=== PATIENT | female | born 1955 | race Two or more races ===

== ENCOUNTER 2024-09-01 18:18 | Inpatient (IN) | payer MEDICARE, BC ==
[2024-09-01] MEDS ORDERED: ACETAMINOPHEN TAB 325 MG TAB PO PRN (18:39)
[2024-09-01] MEDS ORDERED: NALOXONE 0.4 MG/ML 1 ML VIAL IV PRN (18:39)
--- NOTE | 2024-09-01 18:43 | ED ---
General Adult HPI - General Chief complaint: Chest Pain Stated complaint: chest pain Time Seen by Provider: 09/01/24 18:23 Source: patient, EMS, RN notes reviewed, old records reviewed Mode of arrival: EMS Limitations: no limitations - History of Present Illness Initial comments: 69-year-old female with known CAD presenting for evaluation of intermittent chest tightness. Patient was transferred from outside hospital for cardiology evaluation of exertional chest pain. Patient states she previously followed with cardiology but has been many years. She states she does have a history of cardiac stent. Patient has no pain at the time my evaluation. She was given aspirin and nitroglycerin at outside hospital prior to transfer. She had a negative initial troponin. But given the exertional chest pain and history of CAD she was transferred for cardiology evaluation. Review of Systems ROS Statement: Those systems with pertinent positive or pertinent negative responses have been documented in the HPI. ROS Other: All systems not noted in ROS Statement are negative. Past Medical History Past Medical History: Coronary Artery Disease (CAD), Hypertension, Myocardial Infarction (ID) Additional Past Medical History / Comment(s): [place] w/ stent placement (2004/2014) History of Any Multi-Drug Resistant Organisms: None Reported Past Surgical History: Adenoidectomy, Appendectomy, Hernia Repair, Hysterectomy, Orthopedic Surgery, Tonsillectomy Additional Past Surgical History / Comment(s): Right shoulder x4 Past Psychological History: No Psychological Hx Reported Smoking Status: Current every day smoker Past Alcohol Use History: Occasional Past Drug Use History: None Reported General Exam Limitations: no limitations General appearance: alert, in no apparent distress Head exam: Present: atraumatic, normocephalic Eye exam: Present: normal appearance, PERRL ENT exam: Present: normal exam Neck exam: Present: normal inspection. Absent: tenderness, meningismus Respiratory exam: Present: normal lung sounds bilaterally. Absent: respiratory distress, wheezes Cardiovascular Exam: Present: normal rhythm, bradycardia GI/Abdominal exam: Present: soft. Absent: distended, tenderness, guarding Extremities exam: Present: normal inspection, normal capillary refill. Absent: calf tenderness Neurological exam: Present: alert, oriented X3, CN II-XII intact. Absent: motor sensory deficit Psychiatric exam: Present: normal affect, normal mood Skin exam: Present: warm, dry, intact. Absent: cyanosis, diaphoretic Course Vital Signs 09/01/24 18:25 Temperature 98.3 F Pulse Rate 54 L Respiratory 18 Rate Blood Pressure 143/76 O2 Sat by Pulse 96 Oximetry Medical Decision Making - Medical Decision Making Was pt. sent in by a medical professional or institution (THIERNO Haji, [facility], urgent care, hospital, or long-term...) When possible be specific @Transfer from [place] Did you speak to anyone other than the patient for history (EMS, parent, family, police, friend...)? What history was obtained from this source @ -No Did you review nursing and triage notes (agree or disagree)? Why? @ -I reviewed and agree with nursing and triage notes Were old charts reviewed (outside hosp., previous admission, EMS record, old EKG, old radiological studies, urgent care reports/EKG's, long-term records)? Report findings @ -No old charts were reviewed Differential Chest Pain: Stable Angina, Unstable Angina, STEMI, NSTEMI Aortic Dissection, Pneumothorax, Musculoskeletal, Esophageal Spasm GERD, Cholecystitis, Pancreatitis, Zoster, this is not meant to be an all-inclusive list. EKG interpreted by me (3pts min.). @ -EKG: Sinus bradycardia with a first-degree AV block rate of 51, VA interval 212, QRS duration 98, QTc [address] segment elevation. X-rays interpreted by me (1pt min.). @ -None done CT interpreted by me (1pt min.). @ -None done U/S interpreted by me (1pt. min.). @ -None done What testing was considered but not performed or refused? (CT, X-rays, U/S, labs)? Why? @ -None What meds were considered but not given or refused? Why? @ -None Did you discuss the management of the patient with other professionals (professionals i.e. THIERNO Haji, [facility], lab, RT, psych nurse, social media coordinator, sat tutor, teacher, sports development officer, director case management)? Give summary @ -Dr. Ramirez Was smoking cessation discussed for >3mins.? @ -No Was critical care preformed (if so, how long)? @ -No Were there social determinants of health that impacted care today? How? (Homelessness, low income, unemployed, alcoholism, drug addiction, transportation, low edu. Level, literacy, decrease access to med. care, prison, rehab)? @ -No Was there de-escalation of care discussed even if they declined (Discuss DNR or withdrawal of care, Hospice)? DNR status @ -No What co-morbidities impacted this encounter? (DM, HTN, Smoking, COPD, CAD, Cancer, CVA, ARF, Chemo, Hep., AIDS, mental health diagnosis, sleep apnea, morbid obesity)? @ -Current smoker, history of CAD Was patient admitted / discharged? Hospital course, mention meds given and route, prescriptions, significant lab abnormalities, going to OR and other pertinent info. @69-year-old female with exertional chest pain transferred for cardiology evaluation. Patient chest pain-free with a negative initial troponin. She will be admitted for serial cardiac enzymes, telemetry, cardiology consultation. I did obtain repeat laboratory test including CBC, CMP which are pending at this time. Undiagnosed new problem with uncertain prognosis? @ -No Drug Therapy requiring intensive monitoring for toxicity (Heparin, Nitro, Insulin, Cardizem)? @ -No Were any procedures done? @ -No Diagnosis/symptom? @ -Chest pain rule out Acute, or Chronic, or Acute on Chronic? @ -Acute Uncomplicated (without systemic symptoms) or Complicated (systemic symptoms)? @ -Default Side effects of treatment? @ -No Exacerbation, Progression, or Severe Exacerbation? @ -No Poses a threat to life or bodily function? How? (Chest pain, [place], ID, pneumonia, PE, COPD, DKA, ARF, appy, cholecystitis, CVA, Diverticulitis, Homicidal, Suicidal, threat to staff... and all critical care pts) @Yes, ACS Disposition Clinical Impression: Chest pain Disposition: ADMITTED IP TO THIS HOSP Condition: Stable Is patient prescribed a controlled substance at d/c from ED?: No Referrals: None,Stated [Primary Care Provider] - 1-2 days Time of Disposition: 18:43
[2024-09-01 19:05] LABS: Basophils # (A) 0.04 10*3/uL (0.00-0.10); Basophils % (A) 0.6 %; Eosinophils % (A) 1.5 %; HCT 36.7 % (37.2-46.3); Lymphocytes # (A) 3.36 10*3/uL (0.90-5.00); Lymphocytes % (A) 49.6 %; MCH 34.5 pg (27.0-32.0); MCHC 35.4 g/dL (32.0-37.0); MCV 97.3 fL (80.0-97.0); Monocytes # (A) 0.51 10*3/uL (0.20-1.00); Monocytes % (A) 7.5 %; Neutrophils # (A) 2.74 10*3/uL (1.80-7.70); Neutrophils % (A) 40.4 %; Platelet Count 240 10*3/uL (140-440); RBC 3.77 10*6/uL (4.10-5.20); RDW 12.6 % (11.5-14.5); WBC 6.78 10*3/uL (4.50-10.00)
[2024-09-01 19:14] LABS: Partial Thromboplastin Time 24.4 sec (22.0-30.0); Prothrombin Time 11.3 sec (10.0-12.5)
[2024-09-01 19:19] LABS: ALT 20 U/L (4-34); AST 27 U/L (14-36); African American GFR (CKD) 81 (>60 ml/min/1.73 sqM); Albumin 4.1 g/dL (3.5-5.0); Alkaline Phosphatase 82 U/L (38-126); Anion Gap 9 mmol/L; Blood Urea Nitrogen 20 mg/dL (7-17); Calcium 9.9 mg/dL (8.4-10.2); Carbon Dioxide 25 mmol/L (22-30); Chloride 103 mmol/L (98-107); Glucose 91 mg/dL (74-99); Non-African American GFR(CKD) 70 (>60 ml/min/1.73 sqM); Potassium 3.8 mmol/L (3.5-5.1); Sodium 137 mmol/L (137-145); Total Bilirubin 0.6 mg/dL (0.2-1.3); Total Protein 6.5 g/dL (6.3-8.2)
--- NOTE | 2024-09-01 20:26 | HP ---
HISTORY AND PHYSICAL CHIEF COMPLAINT: Chest pain. HISTORY OF PRESENT ILLNESS: This 69-year-old woman with a past medical history of CAD, apparently had a stress test in recently which was negative according to her. The patient is complaining of pressure type of recent chest pain in the central part and left-sided chest, radiating to the left shoulder. The patient was referred to [facility], admitted for evaluation and treatment. There is no history of any fever, rigors, or chills at this time. The patient just arrived to the ER at this time. PAST MEDICAL HISTORY: History of CAD, hypertension, history of myocardial infarction, history of CAD stent. Rest of history and chart is also reviewed. HOME MEDICATIONS: ntd ALLERGIES: Not available. FAMILY HISTORY: No history of heart disease or strokes in the family. SOCIAL HISTORY: History of smoking. REVIEW OF SYSTEMS: A 14-point review of systems negative except as mentioned earlier. PHYSICAL EXAMINATION: VITAL SIGNS: Pulse is 54, blood pressure 140/76, and respirations 18. HEENT: Conjunctivae normal. CARDIOVASCULAR: S1, S2. ABDOMEN: Soft, nontender. LEGS: No edema. No swelling. NERVOUS SYSTEM: No focal deficits. LABORATORY DATA: Hemoglobin 13. EKG nonspecific ST T changes ASSESSMENT: 1. Chest pain, possible unstable angina, rule out acute myocardial infarction. 2. History of CAD stent. 3. History of myocardial infarction. 4. History of CAD noted. 5. Continued ongoing nicotine dependence. RECOMMENDATIONS: This 69-year-old woman presented with multiple complex medical issues. We will monitor the patient closely. Continue the current management and continue symptomatic treatment. I would recommend considering a protocol, IV heparin, Cardiology consultation, rule out myocardial infarction. Otherwise, pain management. Repeat troponins. Prognosis guarded because of multiple complex medical issues. Further recommendations to follow. See orders for details. MMODL / IJN: [id number] / MTDD
[2024-09-01] MEDS ORDERED: ATORVASTATIN 10 MG TAB PO SCH (23:00)
[2024-09-01] MEDS: NICOTINE 21MG/24HR PATCH TRANSDERM SCH (23:12)
[2024-09-01] MEDS: ATORVASTATIN 20 MG TAB PO SCH (23:12)
[2024-09-02] MEDS ORDERED: ALPRAZolam 0.5 MG TAB PO PRN (09:44)
[2024-09-02] MEDS ORDERED: ALPRAZolam 0.25 MG TAB PO PRN (09:44)
[2024-09-02] MEDS ORDERED: NITROGLYCERIN SL TABS 0.4 MG TAB SUBLINGUAL PRN (09:44)
[2024-09-02] MEDS: ATORVASTATIN 80 MG TAB PO STA (10:16)
[2024-09-02] MEDS: ASPIRIN 325 MG TAB PO STA (10:16)
[2024-09-02] MEDS: HEPARIN SODIUM,PORCINE (1 ML) 2,500 UNIT in SODIUM CHLORIDE 0.9% 250 ML IRRIGATION ONE (11:59)
[2024-09-02] MEDS: HEPARIN SODIUM (1,000 UNIT/ML) 1,000 UNIT in SODIUM CHLORIDE 0.9% 1,000 ML IRRIGATION ONE (11:59)
[2024-09-02] MEDS: SODIUM CHLORIDE 0.9% 1,000 ML IV ONE (11:59)
[2024-09-02] MEDS: fentaNYL (PF) 50 MCG/ML 2 ML AMP IVP ONE (12:40)
[2024-09-02] MEDS: LIDOCAINE 1% INJ 10MG/ML (20 ML MDV) SQ ONE (12:43)
[2024-09-02] MEDS: VERAPAMIL SYRINGE (5 MG/10 ML) INTRAARTER ONE (12:44)
[2024-09-02] MEDS: MIDAZOLAM 2 MG/2 ML VIAL IVP ONE (12:48)
[2024-09-02] MEDS: HEPARIN SODIUM 1,000 UN/ML (10ML VL) IVP ONE (12:49)
[2024-09-02] MEDS: IOPAMIDOL-370 100ML BTL INJ ONE (12:55)
[2024-09-02] MEDS ORDERED: RX INFO: IV CONTRAST WAS GIVEN 1 EACH MISC MISCELLANE PRN (13:20)
--- NOTE | 2024-09-02 13:29 | P.CRDCN ---
History of Present Illness Consult date: 09/02/24 History of present illness: History of Present Illness: The patient is a 69-year-old female with known history of hypertension, hyperlipidemia, chronic tobacco use, peripheral vascular disease with a prior history of CAD who presented with symptoms of chest discomfort. She has been complaining of discomfort on and off for the last couple weeks, exertional pattern with progressive fatigue, lack of energy and shortness of breath. She has no PND or orthopnea and no documented arrhythmia. She has a prior history of CAD status post stenting of the RCA in 2005 and subsequently in 2015 at [facility]. Repeat cardiac catheterization in 2019 showed patent stents with significant obstructive disease in a small first OM. She was treated medically. She has not seen a lab director in a while. She has a prior history of ASD closure and a history of PAD with prior intervention. She recently underwent an MPI that showed a fixed anterior wall defect probably soft tissue attenuation and her echocardiogram showed a preserved systolic function. Because of her persistent symptoms she was referred to the hospital and subsequently admitted. She used to smoke up to a pack a day until yesterday. On presentation she was in sinus mechanism and her troponin were normal. She has noted weight loss recently with poor appetite. She has allergy to nickel Medications: Aspirin, metoprolol 25 mg daily, clopidogrel 75 mg daily, Zestril 10 mg daily, metoprolol tartrate 25 mg daily, lisinopril HCT 20-25 mg daily Review of Systems: Respiratory: She has dyspnea on exertion and occasional cough. GI: No nausea or vomiting . No history of peptic ulcer disease. No recent GI bleed. : No hematuria or dysuria. Nervous System: No stroke or seizure. Physical Examination: 69-year-old female, alert oriented no apparent distress,Blood pressure 137/60, Heart rate 55 Head: Normocephalic. Eyes: Sclerae nonicteric. Neck: Good carotid upstroke, no bruit, no jugular venous distention. Lungs: Decreased breath sounds bilaterally Heart: Regular rate and rhythm, S1-S2, no S3, no rub. Systolic ejection murmur. Abdomen: Soft nontender, positive bowel sounds no organomegaly. Extremities: No edema, intact distal pulses. Labs: Hemoglobin 13, WBC 6.78. BUN 20, creatinine 0.85. Troponin less than 0.012. EKG: Sinus mechanism rate of 51 with left axis deviation, first-degree block and nonspecific ST-T wave changes Impression: 1. Recurrent chest discomfort, exertional pattern, rule out unstable angina. Patient had a recent MPI that was unremarkable. Rule out false negative 2. Status post stenting of the RCA 3. History of chronic tobacco use 4. Status post ASD closure 5. History of hypertension 6. History of hyperlipidemia 7. Weight loss, patient would require workup as an outpatient by PCP Plan: 1. I would recommend to proceed with coronary angiography in view of the persistent symptoms and prior history 2. Smoking cessation 3. Continue other therapy, if there is no evidence of significant disease stop clopidogrel 4. Depending on her progress further recommendations will be made 5. Thank you for this consult we will follow with you Past Medical History Past Medical History: Coronary Artery Disease (CAD), Hypertension, Myocardial Infarction ([place]) Additional Past Medical History / Comment(s): [place] w/ stent placement () Last Myocardial Infarction Date:: unknwon History of Any Multi-Drug Resistant Organisms: None Reported Past Surgical History: Adenoidectomy, Appendectomy, Hernia Repair, Hysterectomy, Orthopedic Surgery, Tonsillectomy Additional Past Surgical History / Comment(s): Right shoulder x4 Past Psychological History: No Psychological Hx Reported Smoking Status: Current every day smoker Past Alcohol Use History: Occasional Past Drug Use History: None Reported Medications and Allergies Home Medications Medication Instructions Recorded Confirmed Type Aspirin EC [Ecotrin Low Dose] 81 mg PO DAILY 09/02/24 09/02/24 History Atorvastatin [Lipitor] 20 mg PO HS 09/02/24 09/02/24 History Clopidogrel [Plavix] 75 mg PO DAILY 09/02/24 09/02/24 History Lisinopril-Hctz 20-25 mg 1 tab PO DAILY 09/02/24 09/02/24 History [Zestoretic 20-25] Metoprolol Tartrate 25 mg PO DAILY 09/02/24 09/02/24 History Nitroglycerin Sl Tabs [Nitrostat] 0.4 mg SUBLINGUAL Q5M PRN 09/02/24 09/02/24 History lisinopriL [Zestril] 10 mg PO DAILY 09/02/24 09/02/24 History Allergies Allergy/AdvReac Type Severity Reaction Status Date / Time No Known Allergies Allergy Verified 09/02/24 10:17 Physical Exam Vitals: Vital Signs Temp Pulse Pulse Resp BP BP Pulse Ox 09/02/24 07:11 98.2 F 54 L 16 137/67 98 09/02/24 00:51 97.8 F 55 L 18 126/56 98 09/01/24 21:16 98.1 F 52 L 16 139/61 95 09/01/24 20:16 57 L 18 118/65 95 09/01/24 18:57 54 L 09/01/24 18:25 98.3 F 54 L 18 143/76 96 Intake and Output 09/01/24 09/02/24 09/02/24 22:59 06:59 14:59 Intake Total 100 Balance 100 Intake: IV 100 Other: Voiding Method Toilet Toilet # Voids 1 2 Weight 55.792 kg Results 09/01/24 18:46 09/01/24 18:46 Cardiac Enzymes 09/01/24 09/01/24 09/01/24 Range/Units 18:46 18:46 23:31 AST 27 (14-36) U/L Troponin I <0.012 <0.012 (0.000-0.034) ng/mL 09/02/24 Range/Units 00:48 AST (14-36) U/L Troponin I <0.012 (0.000-0.034) ng/mL Coagulation 09/01/24 Range/Units 18:46 PT 11.3 (10.0-12.5) sec APTT 24.4 (22.0-30.0) sec CBC 09/01/24 Range/Units 18:46 WBC 6.78 (4.50-10.00) 10*3/uL RBC 3.77 L (4.10-5.20) 10*6/uL Hgb 13.0 (12.0-15.0) g/dL Hct 36.7 L (37.2-46.3) % Plt Count 240 (140-440) 10*3/uL Comprehensive Metabolic Panel 09/01/24 Range/Units 18:46 Sodium 137 (137-145) mmol/L Potassium 3.8 (3.5-5.1) mmol/L Chloride 103 (98-107) mmol/L Carbon Dioxide 25 (22-30) mmol/L BUN 20 H (7-17) mg/dL Creatinine 0.85 (0.52-1.04) mg/dL Glucose 91 (74-99) mg/dL Calcium 9.9 (8.4-10.2) mg/dL AST 27 (14-36) U/L ALT 20 (4-34) U/L Alkaline Phosphatase 82 (38-126) U/L Total Protein 6.5 (6.3-8.2) g/dL Albumin 4.1 (3.5-5.0) g/dL Current Medications Generic Name Dose Route Start Last Admin Trade Name Freq PRN Reason Stop Dose Admin Acetaminophen 650 mg 09/01/24 18:39 Acetaminophen Tab 325 Mg Tab PO Q6HR PRN Mild Pain or Fever > 100.5 Alprazolam 0.25 mg 09/02/24 09:44 Alprazolam 0.25 Mg Tab PO Q6HR PRN Mild Anxiety Alprazolam 0.5 mg 09/02/24 09:44 Alprazolam 0.5 Mg Tab PO Q6HR PRN Moderate Anxiety Atorvastatin Calcium 20 mg 09/01/24 23:00 09/01/24 23:12 Atorvastatin 20 Mg Tab PO 20 mg HS NUNO Administration Heparin Sodium (Porcine) 10, 1,001 mls @ 999 mls/hr 09/03/24 07:00 000 unit/ Sodium Chloride IRRIGATION 09/03/24 23:00 ONCE PRN INTRA-OP Heparin Sodium (Porcine) 2,500 250.5 mls @ 250 mls/hr 09/03/24 07:00 unit/ Sodium Chloride IRRIGATION 09/03/24 23:00 ONCE PRN INTRA-OP Sodium Chloride 1,000 mls @ 75 mls/hr 09/02/24 10:45 Saline 0.9% IV .[id number] [facility] Sodium Chloride 1,000 mls @ 75 mls/hr 09/02/24 13:30 Saline 0.9% IV 09/02/24 16:29 .[id number] [facility] Miscellaneous Information 1 each 09/02/24 13:20 Rx Info: Iv Contrast Was Given 1 Each Misc MISCELLANE 09/04/24 13:20 DAILY PRN Per Protocol Naloxone HCl 0.2 mg 09/01/24 18:39 Naloxone 0.4 Mg/Ml 1 Ml Vial IV Q2M PRN Opioid Reversal Nicotine 1 patch 09/01/24 23:00 09/02/24 08:52 Nicotine 21mg/24hr Patch TRANSDERM 1 patch DAILY NUNO Administration Nitroglycerin 0.4 mg 09/02/24 09:44 Nitroglycerin Sl Tabs 0.4 Mg Tab SUBLINGUAL Q5M PRN Chest Pain Intake and Output 09/01/24 09/02/24 09/02/24 22:59 06:59 14:59 Intake Total 100 Balance 100 Intake: IV 100 Other: Voiding Method Toilet Toilet # Voids 1 2 Weight 55.792 kg 09/01/24 18:46 09/01/24 18:46
--- NOTE | 2024-09-02 13:32 | P.CARDCATH ---
Date of Procedure: 09/02/24 Description of Procedure: Cardiac Catheterization: The patient is a 69-year-old female with a known history of CAD who presented with recurrent symptoms of chest discomfort, exertional. She had no evidence of myocardial infarction. She had a recent MPI that showed no evidence of stress- induced ischemia. Recommendations were made regarding cardiac catheterization, the risks and the complications were discussed with the patient who is in full understanding and agreement. Procedure Description: Patient was brought to photo lab technician in fasting semi-sedated state after receiving Fentanyl and Benadryl achieiving moderate conscious sedated state. Using Xylocaine Anesthesia and modified Seldinger technique, a 6-Mosotho sheath was introduced in the right radial artery . Subsequently, selective coronary angiography was performed using a 5-Mosotho 3.5 bend Isela catheter. Multiple views of the coronary artery including hemiaxial views were obtained. The 5 Mosotho pigtail catheter was used to cross the aortic valve and LVEDP was calculated. Following that, catheter and sheath were removed. Hemostasis was obtained with deployment of vascular band . There was no immediate complication. Patient was returned to room in stable condition. Of note, the patient received a total of 3000 units of intravenous heparin as well as intra-arterial verapamil. Findings: Fluoroscopy: An interatrial septal closure device was noted Left main: This is a large size vessel, bifurcating into LAD and left circumflex, left main has no high-grade stenosis LAD: This is a moderately sized vessel giving rise to a large diagonal branch. The proximal LAD has 20 to 30% plaque. The LAD in the midsegment is small in caliber but has no evidence of high-grade stenosis. Left circumflex: This is a nondominant vessel, giving rise to a proximal small obtuse marginal branch that has 90% stenosis at the ostium. Beyond that the left circumflex is moderate in caliber and has no high-grade stenosis. RCA: This is a large dominant vessel, bifurcating distally to PDA and PLV the stented segment in the mid and distal RCA are patent with mild in-stent restenosis. Left Ventriculogram: Not performed Hemodynamics: There was no gradient across the aortic valve, LVEDP was 16-18 mmHg Conclusion: 1. Patent stent in the RCA 2. Significant disease in the OM1, described in 2019 3. Mild disease in the LAD and RCA 4. Right dominance Recommendations: I see no evidence of progression of disease compared with the images reported in 2019. I will maximize her medical therapy, the importance of smoking cessation was discussed with the patient. The findings and the recommendations were discussed with the patient and the family and they were in full understanding and agreement. Duration of sedation is 14 minutes.
[2024-09-02] MEDS: SODIUM CHLORIDE 0.9% 1,000 ML IV SCH ×2 (15:43)
[2024-09-02] MEDS: ISOSORBIDE MONONITRATE ER 30 MG TAB.ER.24H PO SCH (16:19)
[2024-09-02] MEDS: ONDANSETRON 4 MG/2 ML VIAL IVP PRN (18:09)
[2024-09-02] MEDS: KETOROLAC 15 MG/ML 1 ML VIAL IVP PRN (21:30)
[2024-09-02] MEDS: PROCHLORPERAZINE INJ 10 MG/2 ML VIAL IVP PRN (21:31)
--- NOTE | 2024-09-02 21:39 | PN ---
PROGRESS NOTE DATE OF SERVICE: 09/02/2024 SUBJECTIVE: This is a 69-year-old woman who was admitted with chest pain, unstable angina, underwent cardiac catheterization by Cardiology showed a patent stent in the RCA, significant disease of OM1 and mild disease in the LAD, RCA and right dominant. Cardiology recommended medical treatment. No chest pain, no palpitation. PHYSICAL EXAMINATION: VITAL SIGNS: Pulse is 54, blood pressure 137/67, respirations 16. CHEST: Few scattered rhonchi. ABDOMEN: Soft. NERVOUS SYSTEM: Nonfocal. LABORATORY DATA: Reviewed. ASSESSMENT: 1. Chest pain possible unstable angina, status post cardiac catheterization. 2. History of coronary artery disease and stent. 3. History of myocardial infarction. 4. History of continued ongoing nicotine dependence. RECOMMENDATIONS: Recommend to continue current symptomatic treatment and medical management. Add Imdur to the current regimen. Increase ambulation. Smoking cessation. Further recommendations to follow. MMODL / IJN: [id number] /
[2024-09-03] MEDS ORDERED: HEPARIN SODIUM,PORCINE 10,000 UNIT in SODIUM CHLORIDE 0.9% 1,000 ML IRRIGATION PRN (07:00)
[2024-09-03] MEDS ORDERED: HEPARIN SODIUM,PORCINE (1 ML) 2,500 UNIT in SODIUM CHLORIDE 0.9% 250 ML IRRIGATION PRN (07:00)
[2024-09-03 08:16] LABS: BUN/Creat Ratio 20.43 Ratio (12.00-20.00); Blood Urea Nitrogen 14.3 mg/dL (9.0-27.0); Calcium 9.1 mg/dL (8.7-10.3); Carbon Dioxide 24.9 mmol/L (21.6-31.8); Chloride 104 mmol/L (96-109); Chol/HDL Ratio 2.33 Ratio; Glucose 93 mg/dL (70-110); Potassium 4.1 mmol/L (3.5-5.5); Sodium 138 mmol/L (135-145)
[2024-09-03 08:21] LABS: Basophils % (A) 0.4 %; Eosinophils % (A) 1.6 %; HCT 37.8 % (37.2-46.3); HGB 12.6 g/dL (12.0-15.0); Lymphocytes # (A) 1.92 X 10*3/uL (0.90-5.00); Lymphocytes % (A) 27.7 %; MCH 33.8 pg (27.0-32.0); MCHC 33.3 g/dL (32.0-37.0); MCV 101.3 FL (80.0-97.0); Mean Platelet Volume 10.3 FL (9.5-12.2); Monocytes # (A) 0.45 X 10*3/uL (0.20-1.00); Monocytes % (A) 6.5 %; NRBC Per 100 WBC 0 X 10*3/uL (0.00-0.01); Neutrophils # (A) 4.41 X 10*3/uL (1.80-7.70); Neutrophils % (A) 63.5 %; Platelet Count 216 X 10*3/uL (140-440); RBC 3.73 X 10*6/uL (4.10-5.20); RDW 12.7 % (11.5-14.5); WBC 6.94 X 10*3/uL (4.50-10.00)
[2024-09-03 08:22] LABS: Basophils # (A) 0.03 X 10*3/uL (0.00-0.10); Eosinophils # (A) 0.11 X 10*3/uL (0.04-0.35)
[2024-09-03] MEDS: lisinopriL 10 MG TAB PO SCH (08:38)
[2024-09-03] MEDS: METOPROLOL TARTRATE 25 MG TAB PO SCH (08:38)
[2024-09-03] MEDS: ASPIRIN 81 MG PO SCH (08:38)
[2024-09-03] MEDS ORDERED: CLOPIDOGREL 75 MG TAB PO SCH (09:00)
--- NOTE | 2024-09-03 12:30 | P.PN ---
Subjective Progress Note Date: 09/03/24 History of Present Illness: The patient is a 69-year-old female with known history of hypertension, hyperl ipidemia, chronic tobacco use, peripheral vascular disease with a prior history of CAD who presented with symptoms of chest discomfort. She has been complaining of discomfort on and off for the last couple weeks, exertional pattern with progressive fatigue, lack of energy and shortness of breath. She has no PND or orthopnea and no documented arrhythmia. She has a prior history of CAD status post stenting of the RCA in 2005 and subsequently in 2015 at [facility]. Repeat cardiac catheterization in 2019 showed patent stents with significant obstructive disease in a small first OM. She was treated medically. She has not seen a cultural anthropology professor in a while. She has a prior history of ASD closure and a history of PAD with prior intervention. She recently underwent an MPI that showed a fixed anterior wall defect probably soft tissue attenuation and her echocardiogram showed a preserved systolic function. Because of her persistent symptoms she was referred to the hospital and subsequently admitted. She used to smoke up to a pack a day until yesterday. On presentation she was in sinus mechanism and her troponin were normal. She has noted weight loss recently with poor appetite. She has allergy to nickel Medications: Aspirin, metoprolol 25 mg daily, clopidogrel 75 mg daily, Zestril 10 mg daily, metoprolol tartrate 25 mg daily, lisinopril HCT 20-25 mg daily Labs: Hemoglobin 13, WBC 6.78. BUN 20, creatinine 0.85. Troponin less than 0.012. EKG: Sinus mechanism rate of 51 with left axis deviation, first-degree block and nonspecific ST-T wave changes 09/03/2024 Patient seen and examined. Yesterday, patient underwent cardiac catheterization with Dr. Cerda which revealed patent stent in the RCA, significant disease in the OM1 described in 2019, mild disease in the LAD and RCA, right dominance. Recommendations were for medical management, smoking cessation was discussed with the patient. Blood pressure 110/69, heart rate in the 60s, pulse ox 96% on room air. Repeat blood work reveals WBC 6.9, hemoglobin 12.6. Electrolytes and renal function are normal. Triglycerides 108, cholesterol 134, LDL 55. Patient denies having chest pain chest pressure or shortness of breath today. She has been on a nicotine patch. Right wrist shows no sign of bleeding or hematoma. Physical Examination: 69-year-old female, alert oriented no apparent distress,Blood pressure 137/60, Heart rate 55 Head: Normocephalic. Eyes: Sclerae nonicteric. Neck: Good carotid upstroke, no bruit, no jugular venous distention. Lungs: Decreased breath sounds bilaterally Heart: Regular rate and rhythm, S1-S2, no S3, no rub. Systolic ejection murmur. Abdomen: Soft nontender, positive bowel sounds no organomegaly. Extremities: No edema, intact distal pulses. Impression: 1. Recurrent chest discomfort, exertional pattern, rule out unstable angina. Patient had a recent MPI that was unremarkable. Rule out false negative 2. Status post stenting of the RCA 3. History of chronic tobacco use 4. Status post ASD closure 5. History of hypertension 6. History of hyperlipidemia 7. Weight loss, patient would require workup as an outpatient by PCP Plan: Continue current cardiac medications: Aspirin 81 mg daily, atorvastatin 20 mg at bedtime, Imdur 30 mg daily, lisinopril 10 mg daily, Lopressor 25 mg daily Smoking cessation: Patient has been instructed to stop smoking, she has a nicotine patch and will be given the [employer]IN[employer] quit line information at discharge Patient is cleared from cardiology for discharge and will follow-up in the office with Dr. Cerda in 1 to 2 weeks. Nurse practitioner note has been reviewed, I agree with documented findings and plan of care. Patient was seen and examined. Objective - Vital Signs Vital signs: Vital Signs Temp 97.8 F 09/03/24 07:57 Pulse 70 09/03/24 07:57 Resp 16 09/03/24 07:57 BP 110/69 09/03/24 07:57 Pulse Ox 96 09/03/24 07:57 FiO2 Intake & Output 09/02/24 09/03/24 09/03/24 18:59 06:59 18:59 Intake Total 100 118 Balance 100 118 Intake: IV 100 Oral 118 Other: Voiding Method Toilet Toilet # Voids 2 2 1 - Labs CBC & Chem 7: 09/03/24 04:53 09/03/24 04:53
[2024-09-03] MEDS: IOPAMIDOL CONTRAST (ORAL USE) VIAL PO PRN (15:42)
--- NOTE | 2024-09-03 17:27 | P.CONS ---
History of Present Illness - Reason for Consult Consult date: 09/03/24 Abdominal pain, loss of appetite and weight loss Requesting physician: Priscila Vazquez - Chief Complaint Chest pain - History of Present Illness This a pleasant 69-year-old female who presented to the hospital 2 days ago with complaints of chest pain. She was seen by cardiology and underwent cardiac catheterization without any intervention. Past medical history includes coronary artery disease, hypertension, hyperlipidemia, peripheral vascular disease, and. Chronic tobacco use patient continues to have pain mostly in her mid abdomen and epigastric region with decreased appetite. Gastroenterology was consulted secondary to abdominal pain poor appetite and weight loss. Patient states that she has lost about 25 pounds in the last couple months. States that she is constantly feeling that she is full she has no appetite. She will take a couple bites of food and does not want to eat anymore. Also states that she will have pain that will start in her left upper chest that will resolve then she will have something like coffee or something and then she starts getting a pain in her epigastric region and abdomen. She denies any vomiting but does feel some nausea. She has been taking Prilosec. She has been following with her PCP and she did undergo EGD and colonoscopy in April or May of this year and [place] which she states was normal. She denies any fevers or chills. She has been afebrile. Labs are unremarkable. CT abdomen and pelvis with contrast have been ordered. Review of Systems REVIEW OF SYSTEMS: CARDIOPULMONARY: No chest pain or shortness of breath. Presented with chest pain. Gastrointestinal: Abdominal pain. Nausea without vomiting. Decreased appetite with weight loss. No hematemesis, coffee-ground emesis. No rectal bleeding, or melena. GENITOURINARY: No dysuria or hematuria. MUSCULOSKELETAL: Reports normal range of motion., Joint pain. SKIN: No rashes. No jaundice. ENDOCRINE: No chills, fevers. No excessive weight gain or loss. No polydipsia or polyuria. PSYCHIATRIC: Unremarkable. NEUROLOGY: No change in mental status. Denies dizziness, headache. ENT: Vision unremarkable. CONSTITUTIONAL: No recent weight loss. No fever, chills, night sweats. Past Medical History Past Medical History: Coronary Artery Disease (CAD), Hypertension, Myocardial Infarction (ND) Additional Past Medical History / Comment(s): ND w/ stent placement () Last Myocardial Infarction Date:: unknwon History of Any Multi-Drug Resistant Organisms: None Reported Past Surgical History: Adenoidectomy, Appendectomy, Hernia Repair, Hysterectomy, Orthopedic Surgery, Tonsillectomy Additional Past Surgical History / Comment(s): Right shoulder x4 Past Psychological History: No Psychological Hx Reported Smoking Status: Current every day smoker Past Alcohol Use History: Occasional Past Drug Use History: None Reported Medications and Allergies Home Medications Medication Instructions Recorded Confirmed Type Aspirin EC [Ecotrin Low Dose] 81 mg PO DAILY 09/02/24 09/02/24 History Atorvastatin [Lipitor] 20 mg PO HS 09/02/24 09/02/24 History Lisinopril-Hctz 20-25 mg 1 tab PO DAILY 09/02/24 09/02/24 History [Zestoretic 20-25] Metoprolol Tartrate 25 mg PO DAILY 09/02/24 09/02/24 History Nitroglycerin Sl Tabs [Nitrostat] 0.4 mg SUBLINGUAL Q5M PRN 09/02/24 09/02/24 H istory lisinopriL [Zestril] 10 mg PO DAILY 09/02/24 09/02/24 History Allergies Allergy/AdvReac Type Severity Reaction Status Date / Time No Known Allergies Allergy Verified 09/02/24 10:17 Physical Exam Vitals: Vital Signs Temp Pulse Pulse Resp BP Pulse Ox 09/03/24 14:38 98.3 F 53 L 16 97/42 97 09/03/24 08:00 70 09/03/24 07:57 97.8 F 70 16 110/69 96 09/03/24 01:35 97.8 F 60 18 97/57 96 09/02/24 19:28 98.1 F 66 20 132/72 95 09/02/24 18:20 66 12 134/67 09/02/24 16:05 54 L 12 143/83 96 Intake and Output 09/03/24 09/03/24 09/03/24 06:59 14:59 22:59 Other: Voiding Method Toilet # Voids 2 1 General appearance: The patient is alert, oriented, appears in no acute distress. HET: Head is normocephalic and atraumatic. Conjunctiva pink. Sclera anicteric. Neck: Supple without lymphadenopathy. Trachea midline. Heart: Regular. Lungs: Equal expansion, normal respiratory effort. Abdomen: Soft, tenderness to palpation above umbilicus and in the epigastric region, nondistended. Skin: No rashes. No jaundice. Extremities: Normal skin color and turgor. No pedal edema. Neurological: No focal deficits. Alert and oriented x3. Results CBC & Chem 7: 09/03/24 04:53 09/03/24 04:53 Labs: Abnormal Lab Results - Last 24 Hours (Table) 09/03/24 09/03/24 Range/Units 04:53 04:53 RBC 3.73 L (4.10-5.20) X 10*6/uL MCV 101.3 H (80.0-97.0) FL MCH 33.8 H (27.0-32.0) pg BUN/Creatinine Ratio 20.43 H (12.00-20.00) Ratio Assessment and Plan (1) Abdominal pain Narrative/Plan: 69-year-old female presented initially with what she thought was chest pain with history of coronary artery disease and previous stenting was evaluated by cardiology and cleared of any acute coronary syndrome. Continues to have abdominal pain mostly in the epigastric and upper abdomen especially with eating. Full feeling with about a 25 pound weight loss. Had recent upper endoscopy and colonoscopy 3 to 4 months ago which she reports as normal as part of her workup for the decreased appetite and weight loss. Unclear etiology. Await CT abdomen pelvis with contrast report. Will plan for upper endoscopy tomorrow. Continue with Protonix 40 mg daily. Current Visit: Yes Status: Acute Code(s): R10.9 - UNSPECIFIED ABDOMINAL PAIN SNOMED Code(s): 46607921 (2) Unintentional weight loss Current Visit: Yes Status: Acute Code(s): R63.4 - ABNORMAL WEIGHT LOSS SNOMED Code(s): 441915246 (3) Decreased appetite Current Visit: Yes Status: Acute Code(s): R63.0 - ANOREXIA SNOMED Code(s): 43689578 (4) Chest pain Current Visit: Yes Status: Acute Code(s): R07.9 - CHEST PAIN, UNSPECIFIED SNOMED Code(s): 85451017 Plan: 1. Continue symptomatic and supportive care 2. Antiemetics as needed 3. Start Protonix 40 mg daily 4. Diet as tolerated, n.p.o. after midnight 5. Plan for upper endoscopy tomorrow 6. CT abdomen pelvis pending Thank you for this consultation, we will continue to follow. Dr. Aureliano Ramos I agree with the dictator's note, documented as a scribe by Tameka Fernandez.
--- NOTE | 2024-09-03 17:42 | CT ---
EXAMINATION TYPE: CT abdomen pelvis w con DATE OF EXAM: 09/03/2024 5:21 PM COMPARISON: None. CLINICAL INDICATION: Female, 69 years old with history of abd pain, weight loss over 20 lbs in 5 lu hs; Abdominal pain and abdnormal weight loss over 5 months TECHNIQUE: Axial CT abdomen pelvis w con;Sagittal and coronal reformats were created on a separate w orkstation. Contrast used:100ml mL of Isovue 300 with IV Contrast, (none if empty) Oral contrast used: with Oral Contrast (none if empty) CT DLP: 444.2 mGycm, Automated exposure control for dose reduction was used. FINDINGS: LOWER CHEST: Unremarkable ABDOMEN LIVER: Unremarkable GALLBLADDER AND BILE DUCTS: Gallbladder is surgically absent with mild intrahepatic and extra hepatic biliary dilatation likely physiologic and a postcholecystectomy change. No evidence of choledocholit hiasis. PANCREAS: Unremarkable. SPLEEN: Unremarkable. ADRENAL GLANDS: Unremarkable. KIDNEYS AND URETERS: No evidence of hydronephrosis or obstructing renal calculus. The ureters are unr emarkable. PELVIS BLADDER: No evidence for wall thickening or mass given limitations of exam. REPRODUCTIVE: The uterus is surgically absent. ABDOMEN & PELVIS STOMACH AND BOWEL: Circumferential wall thickening of the duodenum first and second portions. [place] e area series 3 image 30 may be present. No evidence of bowel obstruction. PERITONEUM/RETROPERITONEUM: No evidence of pneumoperitoneum or free fluid. VASCULATURE: Moderate atherosclerotic calcifications are present throughout the abdominal aorta and i ts branches. No evidence of aortic aneurysm. MUSCULOSKELETAL: No acute osseous abnormalities. Moderate disc degeneration changes are present throu ghout the thoracolumbar spine. LYMPH NODES: No gross evidence for lymphadenopathy. SOFT TISSUE/ABDOMINAL WALL: Unremarkable IMPRESSION: Duodenitis of the first and second portions of the duodenum. Underlying mass not excluded. Direct vis ualization recommended. No lymphadenopathy visualized. No other acute abdominal process is definitive ly visualized. [facility], , 09/03/2024 5:39 PM
--- NOTE | 2024-09-03 18:47 | US ---
EXAMINATION TYPE: US venous doppler duplex LE BI DATE OF EXAM: 09/03/2024 6:17 PM COMPARISON: NONE CLINICAL INDICATION: Female, 69 years old with history of elevated d dimer; elevated d dimer, no pain or swelling, TECHNIQUE: The lower extremity deep venous system is examined utilizing real time linear array sonog kilo with graded compression, color doppler sonography, and spectral doppler. SIDE PERFORMED: Bilateral FINDINGS: VESSELS IMAGED: Common Femoral Vein Deep Femoral Vein Greater Saphenous Vein * Femoral Vein Popliteal Vein Small Saphenous Vein * Proximal Calf Veins (* superficial vessels) Right Leg: appears negative for dvt, Color Doppler imaging shows patency of the vessels. Spectral wa veforms are within normal limits. Left Leg: appears negative for dvt, Color Doppler imaging shows patency of the vessels. Spectral wav eforms are within normal limits. there is a 1.0 x 0.9 x 1.5cm anechoic area seen in the left popliteal fossa IMPRESSION: 1. No ultrasound evidence for deep venous thrombosis. 2. 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
[2024-09-03] MEDS: ENOXAPARIN 40 MG/0.4 ML SYRINGE SQ SCH (20:29)
--- NOTE | 2024-09-04 07:41 | P.PN ---
Subjective Progress Note Date: 09/03/24 This is a 69-year-old female who recently came in with chest pain abdominal pain underwent cardiac catheterization with cardiology recommending maximizing medical management and has cleared the patient. Patient continues to have abdominal pain in the upper right and lower quadrants and reports this is how her initial chest pain started. Patient also reports she has been losing weight of almost 20 pounds over the last few months. Will consult GI and appreciate input and recommendations. Patient continued to have some chest wall discomfort and will obtain a D-dimer and possible CT angio along with CT abdomen for further abdominal pain evaluation. Patient is reporting nausea with no vomiting at this time. Review of systems: Constitutional: No reports of fatigue, fever, or chills Cardiovascular: No reports of chest pain or palpitations Respiratory: No reports of shortness of breath or cough GI: reports of nausea, no reports of vomiting, reports of mid epigastric abdominal pain : No reports of dysuria or retention Neurovascular: No reports of generalized weakness All medications have been reviewed PHYSICAL EXAMINATION: GENERAL: The patient is alert and oriented x4, Well developed, thin built, elderly appearing HEENT: Pupils are round and equally reacting to light. EOMI. no scleral icterus. No conjunctival pallor. Normocephalic, atraumatic. No pharyngeal erythema. No thyromegaly. CARDIOVASCULAR: S1 and S2 muffled PULMONARY: diminished breath sounds bilaterally with no wheezing or rhonchi noted. ABDOMEN: soft. Upper left and mid epigastric quadrant tenderness on palpation that radiates slightly to the right thin. non-distended, normoactive bowel sounds. No palpable organomegaly. MUSCULOSKELETAL: No joint swelling or deformity. EXTREMITIES: No cyanosis, clubbing, or pedal edema. NEUROLOGICAL: Gross neurological examination did not reveal any focal deficits. SKIN: No rashes. Assessment: Chest pain chest pain, likely unstable angina, status post cardiac catheterization with no intervention History of coronary artery disease with previous stents History of myocardial infarction Continued ongoing nicotine dependence Abdominal pain with weight loss of 20+ pounds over the last few months and decreased appetite Moderate protein calorie malnutrition with a BMI of 22.5 GI prophylaxis DVT prophylaxis Full code Plan: Recommend to continue with current medications and management with cardiology following. Patient is status post cardiac catheterization recommending maximizing medical management and outpatient follow-up Patient continues to report abdominal pain and has been losing weight upwards of 20 to 30 pounds over the last few months having mid epigastric and left and right quadrant pain on palpation., Change diet to clear liquids and will consult GI and appreciate input and recommendations D-dimer ordered and pending. If elevated will obtain CT of the chest CT abdomen pelvis ordered and pending for further evaluation of this abdominal pain and weight loss Recommend tobacco cessation and maximizing medical management Await GI evaluation with possible endoscopy Follow-up on repeat labs Once cleared by GI, patient will be discharged with outpatient follow-up The impression and plan of care has been dictated by Priscila Vazquez, nurse practitioner as directed. Dr. James MD I have performed a history and examination and MDM of this patient, discussed the same with the dictator, and agree with the dictator's assessment and plan as written ,documented as a scribe. Based on total visit time, I have performed more than 50% of the visit. Any additional findings or plans will be noted. Objective - Vital Signs Vital signs: Vital Signs Temp 97.8 F 09/03/24 07:57 Pulse 70 09/03/24 08:00 Resp 16 09/03/24 07:57 BP 110/69 09/03/24 07:57 Pulse Ox 96 09/03/24 07:57 FiO2 Intake & Output 09/02/24 09/03/24 09/03/24 18:59 06:59 18:59 Intake Total 100 118 Balance 100 118 Intake: IV 100 Oral 118 Other: Voiding Method Toilet Toilet Toilet # Voids 2 2 1 - Labs CBC & Chem 7: 09/03/24 04:53 09/03/24 04:53 Labs: Abnormal Lab Results - Last 24 Hours (Table) 09/03/24 09/03/24 Range/Units 04:53 04:53 RBC 3.73 L (4.10-5.20) X 10*6/uL MCV 101.3 H (80.0-97.0) FL MCH 33.8 H (27.0-32.0) pg BUN/Creatinine Ratio 20.43 H (12.00-20.00) Ratio
[2024-09-04 08:38] LABS: African American GFR (CKD) >90 (>60 ml/min/1.73 sqM); Blood Urea Nitrogen 15 mg/dL (7-17); Non-African American GFR(CKD) 90 (>60 ml/min/1.73 sqM)
[2024-09-04] MEDS: PANTOPRAZOLE 40 MG/10 ML VIAL IVP SCH (08:50)
[2024-09-04] MEDS ORDERED: LIDOCAINE 2% (PF) 20 MG/ML 5 ML VIAL ONE (15:03)
[2024-09-04] MEDS ORDERED: PROPOFOL 10 MG/ML 20 ML VIAL IV ONE (15:03)
[2024-09-04] MEDS: IV FLUID CONTINUATION 1,000 ML IV ONE ×2 (15:07→15:28)
--- NOTE | 2024-09-04 15:29 | P.PCN ---
Date of Procedure: 09/04/24 Procedure(s) Performed: BRIEF HISTORY: Patient is a 69-year-old, pleasant, white female in the hospital with epigastric fullness, associated with early satiety and progressive weight loss of 20 pounds for the last 6 months duration. She did have a CT of the abdomen pelvis done yesterday that showed thickening of the duodenum.. PROCEDURE PERFORMED: Esophagogastroduodenoscopy with biopsy. PREOPERATIVE DIAGNOSIS: Epigastric fullness, early satiety and progressive weight loss of 20 pounds of 6 months duration. IV sedation per anesthesia. PROCEDURE: After informed consent was obtained, the patient was brought into the endoscopy unit. IV sedation was administered by Anesthesia under continuous monitoring. Initially the Olympus GIF-140 video endoscope was inserted into the mouth. Esophagus intubated without any difficulty. It was gradually advanced into the stomach and duodenum and carefully examined. The bulb of the duodenum had severe duodenitis and there was a 1.5 cm superficial ulcer along the duodenal sweep with mucosal thickening status post multiple biopsies in this area. The second part of the duodenum appeared normal. The scope at this time was withdrawn to the stomach, adequately insufflated with air, and upon careful examination, mucosa of the antrum, and mild diffuse gastritis and biopsies were done from this area. Mucosa body, cardia and the fundus appeared normal. The scope was then withdrawn into the esophagus. The GE junction was located at 39 cm from the incisors. The esophagus appeared normal. There were no erosions or ulcerations seen and the patient tolerated the procedure well. IMPRESSION: 1. 1.5 cm duodenal ulcer along the duodenal sweep with severe duodenitis status post multiple biopsies. 2. Diffuse antral gastritis 3. No evidence of gastric outlet obstruction. RECOMMENDATIONS: The findings of this examination were discussed with the clinton bobo. At this time she will continue Protonix 40 mg twice daily. Avoid NSAIDs. Await biopsy results. Advance diet as tolerated. Follow-up in the office in 1 week..
[2024-09-04 15:56] VITALS: BP 140/65; PULSE 50; RESP 15; TEMP 97.9
--- NOTE | 2024-09-05 18:25 | P.DS ---
Providers Date of admission: 09/02/24 14:20 Expected date of discharge: 09/04/24 Attending physician: Mahendra Ramirez Consults: 09/01/24 18:39 Consult Physician Routine Consulting Provider: Javi Frausto Consult Reason/Comments: CP Do you want consulting provider notified?: Yes 09/03/24 11:35 Consult Physician Urgent Consulting Provider: Dori Ramos Consult Reason/Comments: abd pain, wt loss, loss of appetite not tolerating diet Do you want consulting provider notified?: Yes Primary care physician: Richard Sotelo MD Hospital Course: Final diagnosis Chest pain chest pain, likely unstable angina, status post cardiac catheterization with no intervention History of coronary artery disease with previous stents History of myocardial infarction Continued ongoing nicotine dependence Abdominal pain with weight loss of 20+ pounds over the last few months and decreased appetite status post EGD showing duodenal ulcers with severe duodenitis along with antral gastritis and multiple biopsies taken and pending Moderate protein calorie malnutrition with a BMI of 22.5 GI prophylaxis DVT prophylaxis Full code Discharge disposition Patient is being discharged in a stable condition with guarded prognosis to home. Patient will follow-up with Deepak Barrios in the outpatient setting upon discharge. Patient is to continue with continued medications and close outpatient follow-up with cardiology as well as GI as scheduled. Total time taken is greater than 35 minutes. Hospital course This is a 69-year-old female who was recently admitted with chest pain likely un stable angina and is status post cardiac catheterization with no tenting noted at this time. Patient has been cleared by cardiology for outpatient follow-up recommending to continue with current regimen and lifestyle modifications along with complete tobacco cessation. Patient continued to have abdominal pain and decreased appetite and reported 20 pound weight loss over the last few months although intake has been extremely poor. Patient was evaluated by GI and underwent EGD showing duodenal ulcers with severe duodenitis as well as antral gastritis with multiple biopsies taken recommending continuing to slowly advance diet as tolerated, continue on Protonix and close outpatient follow-up. Patient to continue with current diet as tolerated. Patient reports to feeling improved and would like to go home. Patient has been cleared by consultations. Please refer to consultation notes for further HPI. Currently no reports of chest pain, shortness of breath, or palpitations. Patient is afebrile. No reports of nausea or vomiting and patient is tolerating diet. Patient will be discharged home today. Physical exam: Gen: This is a 69-year-old female who is awake, alert and oriented x 3, well- developed, thin built, elderly appearing HEENT: Head is atraumatic, normocephalic. Pupils equal, round. Sclerae is anicteric. NECK: Supple. No JVD. No lymphadenopathy. No thyromegaly. LUNGS: Diminished breath sounds bilaterally otherwise clear to auscultation. No wheezes or rhonchi. No intercostal retractions. HEART: S1, S2 are muffled ABDOMEN: Soft. Thin. Bowel sounds are present. No masses. No tenderness. EXTREMITIES: No pedal edema. No calf tenderness. NEUROLOGICAL: Patient is awake, alert and oriented x3. Cranial nerves 2 through 12 are grossly intact. Please refer to medication reconciliation sheet for a list of medications. The impression and plan of care has been dictated by Priscila Vazquez, Nurse Practitioner as directed. Dr. Rosamaria MD I have performed a history and examination and MDM of this patient, discussed the same with the dictator, and agree with the dictator's assessment and plan as written ,documented as a scribe. Based on total visit time, I have performed more than 50% of the visit. Patient Condition at Discharge: Stable Plan - Discharge Summary New Discharge Prescriptions: New Nicotine 21Mg/24Hr Patch [Habitrol] 1 patch TRANSDERM DAILY #30 patch Isosorbide Mononitrate ER [Imdur] 30 mg PO DAILY #30 tab Pantoprazole [Protonix] 40 mg PO BID #60 tab Continue Metoprolol Tartrate 25 mg PO DAILY lisinopriL [Zestril] 10 mg PO DAILY Atorvastatin [Lipitor] 20 mg PO HS Nitroglycerin Sl Tabs [Nitrostat] 0.4 mg SUBLINGUAL Q5M PRN PRN Reason: Chest Pain Aspirin EC [Ecotrin Low Dose] 81 mg PO DAILY Discontinued Lisinopril-Hctz 20-25 mg [Zestoretic 20-25] 1 tab PO DAILY Clopidogrel [Plavix] 75 mg PO DAILY Discharge Medication List Aspirin EC [Ecotrin Low Dose] 81 mg PO DAILY 09/02/24 [History] Atorvastatin [Lipitor] 20 mg PO HS 09/02/24 [History] Metoprolol Tartrate 25 mg PO DAILY 09/02/24 [History] Nitroglycerin Sl Tabs [Nitrostat] 0.4 mg SUBLINGUAL Q5M PRN 09/02/24 [History] lisinopriL [Zestril] 10 mg PO DAILY 09/02/24 [History] Isosorbide Mononitrate ER [Imdur] 30 mg PO DAILY #30 tab 09/04/24 [Rx] Nicotine 21Mg/24Hr Patch [Habitrol] 1 patch TRANSDERM DAILY #30 patch 09/04/24 [Rx] Pantoprazole [Protonix] 40 mg PO BID #60 tab 09/04/24 [Rx] Follow up Appointment(s)/Referral(s): Ledy Cerda MD [STAFF PHYSICIAN] - 1 Week Carmen Mehta MD [STAFF PHYSICIAN] - 1 Week Dori Ramos MD [STAFF PHYSICIAN] - 1 Week Patient Instructions/Handouts: Gastritis (DC), Duodenitis (DC) Activity/Diet/Wound Care/Special Instructions: Activity limited until follow-up Follow-up with primary care provider on discharge Follow-up with cardiology outpatient Dr. Cerda in 1 to 2 weeks Follow-up with GI outpatient in 1 to 2 weeks for biopsy results Continue on Protonix twice daily Continue current diet and slowly advance as tolerated Discharge Disposition: HOME SELF-CARE
== END 2024-09-04 17:06 | disposition home or self-care (01) | DRG 287 ==
LOC: EC 18:18 → 6NMEDSUR 18:40 → OBSVTOIN 09-02 14:20
PROVIDERS: ADMIT Hospitalist; ATTEND Hospitalist
PROC: B2111ZZ Fluoroscopy of Multiple Coronary Arteries using Low Osmolar Contrast (ICD-10-PCS; 2024-09-02)
PROC: 4A023N7 Measurement of Cardiac Sampling and Pressure, Left Heart, Percutaneous Approach (ICD-10-PCS; principal; 2024-09-02 11:30)
PROC: 0DB98ZX Excision of Duodenum, Via Natural or Artificial Opening Endoscopic, Diagnostic (ICD-10-PCS; 2024-09-04)
PROC: 0DB78ZX Excision of Stomach, Pylorus, Via Natural or Artificial Opening Endoscopic, Diagnostic (ICD-10-PCS; 2024-09-04)
DX: I25.110 Atherosclerotic heart disease of native coronary artery with unstable angina pectoris (principal); E44.0 Moderate protein-calorie malnutrition; T82.855A Stenosis of coronary artery stent, initial encounter; K26.9 Duodenal ulcer, unspecified as acute or chronic, without hemorrhage or perforation; K29.80 Duodenitis without bleeding; I10 Essential (primary) hypertension; I73.9 Peripheral vascular disease, unspecified; K29.70 Gastritis, unspecified, without bleeding; I25.2 Old myocardial infarction; Z68.22 Body mass index [BMI] 22.0-22.9, adult; E78.5 Hyperlipidemia, unspecified; F17.210 Nicotine dependence, cigarettes, uncomplicated; Z79.82 Long term (current) use of aspirin; Z79.02 Long term (current) use of antithrombotics/antiplatelets; Z79.899 Other long term (current) drug therapy; Z87.74 Personal history of (corrected) congenital malformations of heart and circulatory system; Z95.5 Presence of coronary angioplasty implant and graft; Y83.1 Surgical operation with implant of artificial internal device as the cause of abnormal reaction of the patient, or of later complication, without mention of misadventure at the time of the procedure
CPT/HCPCS: 36415; 43239; 74177; 80048; 80053; 80061; 82565; 84484; 84520; 85025; 85379; 85610; 85730; 88305; 93005; 93458; 93970; 99285